=== PATIENT | female | born 1950 | race Caucasian/White ===

== ENCOUNTER 2019-01-03 13:48 | Inpatient (IN) | payer MEDICARE, OTHER ==
--- NOTE | 2019-01-03 14:57 | XRAY Report ---
Reason: cough, fever Procedure Date: 01/03/2019 Accession Number: [id number] / [id number] Procedure: XR - Chest 2 View X-Ray CPT Code: 75273 FULL RESULT: EXAM: CHEST RADIOGRAPHY EXAM DATE: 01/03/2019 02:39 PM. CLINICAL HISTORY: Cough, fever. COMPARISON: None. TECHNIQUE: 2 views. FINDINGS: Lungs/Pleura: No definite focal abnormality allowing for hypoventilation and body habitus. Mediastinum: Heart and mediastinal contours are unremarkable. Other: None. IMPRESSION: No definite abnormality allowing for hypoventilation and body habitus. RADIA
[2019-01-03 15:02] LABS: BASOPHILS # (AUTO) 0.1 10^3/uL (0.0-0.1); BASOPHILS % (AUTO) 0.3 %; EOSINOPHILS # (AUTO) 0.1 10^3/uL (0.0-0.7); EOSINOPHILS % (AUTO) 0.3 %; HGB - HEMOGLOBIN 14.5 g/dL (12.0-16.0); LYMPHOCYTES # (AUTO) 0.6 10^3/uL (1.5-3.5); LYMPHOCYTES % (AUTO) 3.3 %; MEAN CORPUSCULAR HEMOGLOBIN 29.4 pg (27.0-31.0); MEAN CORPUSCULAR HGB CONC 33.5 g/dL (32.0-36.0); MEAN CORPUSCULAR VOLUME 87.7 fL (81.0-99.0); MEAN PLATELET VOLUME 9.3 fL (7.9-10.8); MONOCYTES # (AUTO) 1.4 10^3/uL (0.0-1.0); MONOCYTES % (AUTO) 7.4 %; NEUTROPHILS # (AUTO) 16.2 10^3/uL (1.5-6.6); NEUTROPHILS % (AUTO) 88.1 %; PLT - PLATELET COUNT 182 10^3/uL (130-450); RED BLOOD COUNT 4.94 10^6/uL (4.20-5.40); RED CELL DISTRIBUTION WIDTH 15.9 % (12.0-15.0); WHITE BLOOD COUNT 18.5 x10^3/uL (4.8-10.8)
[2019-01-03 15:11] LABS: ALBUMIN 3.5 g/dL (3.2-5.5); ALBUMIN/GLOBULIN RATIO 0.8 (1.0-2.2); BILIRUBIN,TOTAL 0.5 mg/dL (0.2-1.0); CALCIUM 9.8 mg/dL (8.5-10.3); CREATININE 1.1 mg/dL (0.4-1.0)
--- NOTE | 2019-01-03 15:27 | ED Physician Documentation ---
PD HPI DYSPNEA - Stated complaint Stated Complaint: SOA/FEVER - Chief complaint Chief Complaint: Fever - History obtained from History obtained from: Patient - History of Present Illness Timing - onset: How many days ago (2) Timing - details: Still present Worsened by: Coughing Associated symptoms: Fever, Cough Similar symptoms before: Has not had sx before - Additional information Additional information: The patient is a 68-year-old female who presents with fever, chills, and nonproductive cough that started 2 days ago and have been getting worse since that time. She also reports generalized headache. She denies sore throat, abdominal pain, chest pain, nausea or vomiting. She denies history of similar symptoms in the past. 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 Review of Systems Constitutional: reports: Fever, Chills Nose: denies: Congestion Throat: denies: Sore throat Cardiac: denies: Chest pain / pressure Respiratory: reports: Dyspnea, Cough GI: denies: Abdominal Pain, Nausea, Vomiting : denies: Dysuria Skin: denies: Rash Musculoskeletal: reports: Extremity swelling (Chronically). denies: Extremity pain Neurologic: reports: Headache. 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 : None HEENT: Chronic vision loss Psych: None Musculoskeletal: None Derm: None Other Past Medical History: H/O MRSA - Past Surgical History Past Surgical History: Yes Ortho: Knee replacement Derm: Other - Allergies Allergies/Adverse Reactions: Allergies Allergy/AdvReac Type Severity Reaction Status Date / Time Sulfa (Sulfonamide Allergy Cramps Verified 01/03/19 14:19 Antibiotics) - Living Situation Living Situation: reports: Alone - Social History Does the pt smoke?: No Smoking Status: Former smoker Does the pt drink ETOH?: Yes ETOH Use: Wine Does the pt have substance abuse?: No - Immunizations Immunizations are current?: Yes Immunizations: TDAP current <10years, Other immun current - POLST Patient has POLST: No PD ED PE NORMAL - Vitals Vital signs reviewed: Yes (low pulse oximetry and tachycardic) - General General: Alert and oriented X 3, Other (Morbidly obese) - HEENT HEENT: Atraumatic, EOMI, Ears normal, Pharynx benign - Neck Neck: Supple, no meningeal sign, No adenopathy, No JVD - Cardiac Cardiac: Other (Tachycardic) - Respiratory Respiratory: Clear bilaterally - Abdomen Abdomen: Soft, Non tender - Back Back: No CVA TTP - Derm Derm: No rash - Extremities Extremities: No calf tenderness / cord, Other (There is erythema and warmth to palpation of the lower extremities, particularly the left lower extremity at the lateral anterior lower leg. There is a well-healed fasciotomy scar on the medial aspect of the left leg.) - Neuro Neuro: Alert and oriented X 3, No motor deficit, Normal speech Results - Vitals Vitals: Vital Signs - 24 hr 01/03/19 01/03/19 01/03/19 14:14 14:25 15:07 Temperature 36.8 C 37.1 C Heart Rate 105 H 102 H Respiratory 18 20 Rate Blood Pressure 104/56 L 100/73 O2 Saturation 89 L 93 94 01/03/19 01/03/19 01/03/19 15:44 16:00 16:30 Temperature 37.8 C H 37.1 C Heart Rate 98 95 99 Respiratory 29 H 22 17 Rate Blood Pressure 104/52 L 136/55 H 136/55 H O2 Saturation 96 96 96 01/03/19 01/03/19 01/03/19 17:15 18:01 18:29 Temperature 37.5 C 37.2 C 37.5 C Heart Rate 96 101 H 96 Respiratory 20 18 28 H Rate Blood Pressure 111/63 111/71 138/72 H O2 Saturation 96 92 95 01/03/19 01/03/19 19:13 19:49 Temperature 37.4 C 37.0 C Heart Rate 107 H 105 H Respiratory 20 20 Rate Blood Pressure 137/90 H 121/85 H O2 Saturation 93 99 Oxygen O2 Source Nasal cannula Oxygen Flow Rate 3 - Labs Labs: Laboratory Tests 01/03/19 01/03/19 01/03/19 14:40 14:40 14:40 WBC 18.5 H RBC 4.94 Hgb 14.5 Hct 43.3 MCV 87.7 MCH 29.4 MCHC 33.5 RDW 15.9 H Plt Count 182 MPV 9.3 Neut # (Auto) 16.2 H Lymph # (Auto) 0.6 L [place] # (Auto) 1.4 H Eos # (Auto) 0.1 Baso # (Auto) 0.1 Absolute Nucleated RBC 0.00 Nucleated RBC % 0.0 D-Dimer Sodium 132 L Potassium 4.2 Chloride 96 L Carbon Dioxide 26 Anion Gap 10.0 BUN 25 H Creatinine 1.1 H Estimated GFR (MDRD) 49 L Glucose 101 H Lactic Acid 1.7 Calcium 9.8 Total Bilirubin 0.5 AST 25 ALT 22 Alkaline Phosphatase 70 B-Natriuretic Peptide Total Protein 8.0 Albumin 3.5 Globulin 4.5 H Albumin/Globulin Ratio 0.8 L Lipase 34 Urine Color Urine Clarity Urine pH Ur Specific [place] Urine Protein Urine Glucose (UA) Urine Ketones Urine Occult Blood Urine Nitrite Urine Bilirubin Urine Urobilinogen Ur Leukocyte Esterase Ur Microscopic Review Urine Culture Comments 01/03/19 01/03/19 01/03/19 14:40 14:40 19:30 WBC RBC Hgb Hct MCV MCH MCHC RDW Plt Count MPV Neut # (Auto) Lymph # (Auto) [place] # (Auto) Eos # (Auto) Baso # (Auto) Absolute Nucleated RBC Nucleated RBC % D-Dimer 381.8 H Sodium Potassium Chloride Carbon Dioxide Anion Gap BUN Creatinine Estimated GFR (MDRD) Glucose Lactic Acid Calcium Total Bilirubin AST ALT Alkaline Phosphatase B-Natriuretic Peptide 80 Total Protein Albumin Globulin Albumin/Globulin Ratio Lipase Urine Color YELLOW Urine Clarity CLEAR Urine pH 5.5 Ur Specific [place] <=1.005 Urine Protein NEGATIVE Urine Glucose (UA) NEGATIVE Urine Ketones NEGATIVE Urine Occult Blood NEGATIVE Urine Nitrite NEGATIVE Urine Bilirubin NEGATIVE Urine Urobilinogen 0.2 (NORMAL) Ur Leukocyte Esterase NEGATIVE Ur Microscopic Review NOT INDICATED Urine Culture Comments NOT INDICATED - Rads (name of study) CXR Radiology: Prelim report reviewed, EMP read contemporaneously, See rad report (No definite abnormality allowing for hypoventilation and body but this.) CT pulm angio Radiology: Prelim report reviewed, See rad report (1) Moderate motion artifact limited and segmental and subsegmental pulmonary emboli could be missed. No definite evidence for pulmonary emboli. 2) No definite acute prominent findings are seen. Motion artifact limited. 3) Fatty liver. 4) Small gallstones.) PD MEDICAL DECISION MAKING - ED course Complexity details: reviewed results, re-evaluated patient, considered differential, d/w patient, d/w family, d/w financial analysis consultant ED course: The patient's presentation is significant for cellulitis of the left lower extremity with possible sepsis. She is tachycardic and has low pulse oximetry of 89 to 90% on room air. Her white blood cell count is elevated at 18.5, with a lactate in the normal range at 1.7. Blood cultures x2 were drawn and are pending. Chest x-ray reveals no pulmonary infiltrate. Because of continued dyspnea, low pulse oximetry, and an elevated d-dimer, a CT pulmonary angiogram w as performed. It reveals no evidence of pulmonary embolus. Treatment in the emergency department included administration of normal saline 1L IV, ceftriaxone 1 g IV, Zithromax 500 mg orally (when it was initially thought that her infection was pulmonary in etiology), and subsequently vancomycin 1 g IV. I discussed her condition with Dr. Hinds, who accepts her for further evaluation and treatment. Departure - Departure Disposition: [facility] DC/Xfer Clinical Impression: Respiratory insufficiency Cellulitis Qualifiers: Site of cellulitis: extremity Site of cellulitis of extremity: lower extremity Laterality: left Qualified Code(s): L03.116 - Cellulitis of left lower limb Condition: Stable
[2019-01-03] MEDS ORDERED: cefTRIAXone 1 GM in SODIUM CHLORIDE 0.9% MINIBAG 100 ML IV STA (15:29)
[2019-01-03] MEDS ORDERED: AZITHROMYCIN 250 MG TABLET PO STA (15:29)
[2019-01-03] MEDS ORDERED: SODIUM CHLORIDE 0.9% 1,000 ML IV ONE (16:06)
[2019-01-03] MEDS ORDERED: IOVERSOL 320 100 ML VIAL IVP ONE ×2 (17:04→18:33)
--- NOTE | 2019-01-03 18:21 | CT Report ---
Reason: dyspnea with elevated d-dimer Procedure Date: 01/03/2019 Accession Number: [id number] / [id number] Procedure: CT - ANGIO CHEST W/WO CPT Code: FULL RESULT: EXAM: CT ANGIOGRAM CHEST EXAM DATE: 01/03/2019 05:50 PM. CLINICAL HISTORY: Dyspnea with elevated d-dimer. COMPARISON: CHEST 2 VIEW 01/03/2019 2:25 PM. TECHNIQUE: Routine helical imaging was performed through the chest in the pulmonary arterial phase. IV Contrast: OPTI 320 100ML. Reconstructions: Coronal 3-D MIP reconstructions.Sagittal and coronal. In accordance with CT protocol optimization, one or more of the following dose reduction techniques were utilized for this exam: automated exposure control, adjustment of mA and/or KV based on patient size, or use of iterative reconstructive technique. FINDINGS: Upper abdomen: Fatty liver. Small calcified gallstones. Elevated right hemidiaphragm. No thoracic aortic aneurysm or dissection. No mediastinal or hilar lymphadenopathy. Moderate motion artifact limited and segmental and subsegmental pulmonary emboli could be missed. No definite evidence for pulmonary emboli. Prominent heart size. Lungs: Motion artifact limits the exam. Mild bilateral dependent atelectasis. No consolidation, pleural effusion or pneumothorax. Bones: No acute bone findings. IMPRESSION: 1. Moderate motion artifact limited and segmental and subsegmental pulmonary emboli could be missed. No definite evidence for pulmonary emboli. 2. No definite acute prominent findings are seen. Motion artifact limited. 3. Fatty liver. 4. Small gallstones. RADIA
[2019-01-03] MEDS ORDERED: IBUPROFEN 800 MG TABLET PO STA (19:09)
[2019-01-03 19:43] LABS: BILIRUBIN,URINE NEGATIVE (NEGATIVE); GLUCOSE, URINE (UA) NEGATIVE (NEGATIVE); KETONES,URINE (UA) NEGATIVE (NEGATIVE); LEUKOCYTE ESTERASE, URINE NEGATIVE (NEGATIVE); NITRITE,URINE NEGATIVE (NEGATIVE); OCCULT BLOOD,URINE NEGATIVE (NEGATIVE); PH,URINE 5.5 PH (5.0-7.5); PROTEIN,URINE NEGATIVE (NEGATIVE); UROBILINOGEN,URINE 0.2 (NORMAL) E.U./dL (NORMAL)
[2019-01-03 19:45] LABS: CLARITY,URINE CLEAR (CLEAR)
[2019-01-03] MEDS ORDERED: VANCOMYCIN INJ 1 GM in SODIUM CHLORIDE 0.9% 250 ML IV STA ×2 (19:52→21:06)
[2019-01-03] MEDS ORDERED: ACETAMINOPHEN 325 MG TABLET PO PRN (19:56)
[2019-01-03] MEDS ORDERED: ONDANSETRON 4 MG/2 ML VIAL IVP PRN (19:56)
[2019-01-03] MEDS ORDERED: VANCOMYCIN INJ 1 GM in SODIUM CHLORIDE 0.9% 250 ML IV SCH (20:00)
[2019-01-03] MEDS: SODIUM CHLORIDE 0.9% 1,000 ML IV SCH (20:14)
--- NOTE | 2019-01-03 20:20 | HISTORY & PHYSICAL EXAMINATION ---
Chief Complaint - Chief Complaint Chief Complaint: left lower extremity redness History of Present Illness - Admitted From Admitted From:: [facility] - History Obtained From Records Reviewed: yes History obtained from: patient - History of Present Illness HPI Comment/Other: Patient seen on 01/03/19 around 22:30pm Patient is a 68 y/o female who presented to the ED with chills and tachycardia. Onset of her symptoms was 2 days ago, She powered through them on Thursday which was the following day but then got significantly worse in the evening. Normally she is tachycardic with exertion. However she noticed through her fitbit that her heart rate was even higher at 170. She also had a temp of 102F at home. She has chronic lower extremity edema with venostasis. She had a left knee replacement some years back which had subsequent complications warranting a fasciatomy. Her left lower extremity distal to the knee is slightly erythematous and juan c hes with palpation. It is warmer to touch than the right. She denies any pain. In the ED she had a WBC of 18 a Temp of 38.1 Celsius and she was mildly hypoxic with exertion. She does not use oxygen at home. She gets around using a walker and a cane. She also drives. She denied chest pain, dyspnea, abd pain, nausea, vomiting or diarrhea. As a result of her presentation, she is being admitted for further treatment. 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 : reports: None HEENT: reports: Chronic vision loss Psych: reports: None Musculoskeletal: reports: None Derm: reports: None MRSA Hx?: Yes Other Past Medical History: H/O MRSA - Past Surgical History Ortho: reports: Knee replacement Derm: reports: Other - Family & Social History Family History: Mother: , CVA/TIA Living arrangement: At home Living Situation: Alone Social History Notes: She denies tobacco, alcohol or illicit drug use - POLST Patient has POLST: No POLST Status: Full Code Meds/Allgy - Allergies Allergies/Adverse Reactions: Allergies Allergy/AdvReac Type Severity Reaction Status Date / Time Sulfa (Sulfonamide Allergy Cramps Verified 01/03/19 14:19 Antibiotics) Review of Systems - Constitutional Constitutional: reports: Fever, Chills, Other (obese) - Eyes Eyes: denies: Dipolpia - Ears, Nose & Throat Ears, Nose & Throat: denies: Nasal pain, Sore throat, Hoarseness - Cardiovascular Cariovascular: reports: Palpitations, Exertional dyspnea. denies: Chest pain, Edema, Lightheadedness, Syncope - Respiratory Respiratory: reports: SOB at rest, SOB with exertion. denies: Cough, Sputum production, Wheezing - Gastrointestinal Gastrointestinal: reports: Reflux/heartburn. denies: Abdominal pain, Abdominal distention, Constipation, Diarrhea, Nausea, Vomiting - Genitourinary Genitourinary: denies: Dysuria, Frequency, Urgency, Hematuria - Musculoskeletal Musculoskeletal: denies: Muscle pain, Back pain - Integumentary Integumentary: reports: Other (redness in left lower extremity). denies: Pruritis, Lesions - Neurological Neurological: denies: General weakness, Focal weakness, Headache, Dizziness - Psychiatric Psychiatric: denies: Depression, Anxiety - Endocrine Endocrine: denies: Polyuria, Polydypsia - Hematologic/Lymphatic Hematologic/Lymphatic: denies: Anemia, Bruising, Petechiae Prior Level of Functionality: She is independent of activities of daily living Exam - Vital Signs Vital Signs: Vital Signs x48h Temp Pulse Resp BP Pulse Ox 01/03/19 19:49 37.0 C 105 H 20 121/85 H 99 01/03/19 19:13 37.4 C 107 H 20 137/90 H 93 01/03/19 18:29 37.5 C 96 28 H 138/72 H 95 01/03/19 18:01 37.2 C 101 H 18 111/71 92 01/03/19 17:15 37.5 C 96 20 111/63 96 01/03/19 16:30 37.1 C 99 17 136/55 H 96 01/03/19 16:00 95 22 136/55 H 96 01/03/19 15:44 37.8 C H 98 29 H 104/52 L 96 01/03/19 15:07 37.1 C 102 H 20 100/73 94 01/03/19 14:25 93 01/03/19 14:14 36.8 C 105 H 18 104/56 L 89 L - Physical Exam General Appearance: positive: Alert, Mild distress, Other (Moebidly obese). negative: Lethargic Eyes Bilateral: positive: Normal inspection, PERRL, EOMI ENT: positive: ENT inspection nml, No signs of dehydration Neck: positive: Nml inspection, No JVD, Trachea midline Respiratory: positive: Chest non-tender, Breath sounds nml. negative: Wheezes, Rales, Rhonchi Cardiovascular: positive: Tachycardia Abdomen: positive: Non-tender, No organomegaly, Nml bowel sounds, No distention, Other (morbidly obese abdomen). negative: Guarding, Rebound Back: positive: Nml inspection Skin: positive: Warm, Other (left lower extremity redness) Neurologic/Psychiatric: positive: Oriented x3, CN's nml (2-12), Motor nml, Sensation nml, Mood/affect nml Conclusion/Plan - Problem List (1) Cellulitis Conclusion/Plan: Patient given rocephin, azithromycin and vancomycin in the ED. Will continue vancomycin with pharmacy to dose. Gentle IV hydration with normal saline at 100ml/hr Blood cultures pending Tylenol for fever. Qualifiers: Site of cellulitis: extremity Site of cellulitis of extremity: lower extremity Laterality: left Qualified Code(s): L03.116 - Cellulitis of left lower limb (2) Hypertension Conclusion/Plan: On metoprolol and micardis Also takes spironolactone and lasix for edema Will hold micardis, spironolactone and lasix while gently hydrating patient (3) Lower extremity edema Conclusion/Plan: On lasix and spironolactone Will hold micardis, spironolactone and lasix while gently hydrating patient (4) Hyperlipidemia Conclusion/Plan: On simvastatin (5) GERD (gastroesophageal reflux disease) Conclusion/Plan: Protonix ordered - Lab Results Fish Bones: 01/03/19 14:40 01/03/19 14:40 Core Measures - Anticipated LOS I expect patient to be DC'd or transferred within 96 hours.: Yes - DVT/VTE - Prophylaxis VTE/DVT Device ordered at admit?: Yes VTE/DVT Prophylaxis med ordered at admit?: Yes - Stroke - Rehab Assessment Rehab services assessment to be ordered?: Yes
[2019-01-03] MEDS ORDERED: VANCOMYCIN PER PHARMACY 100 GM in SODIUM CHLORIDE 0.9% 250 ML IV SCH (21:00)
[2019-01-03] MEDS: SODIUM CHLORIDE FLUSH 0.9% 10 ML SYRINGE IVP PRN (22:20)
[2019-01-04] MEDS: SODIUM CHLORIDE FLUSH 0.9% 10 ML SYRINGE IVP SCH ×3 (00:49→18:35)
[2019-01-04] MEDS: NYSTATIN POWDER 15 GM TOP SCH ×3 (03:30→21:22)
[2019-01-04 05:47] LABS: BASOPHILS % (AUTO) 0.3 %; EOSINOPHILS # (AUTO) 0.1 10^3/uL (0.0-0.7); HGB - HEMOGLOBIN 12.8 g/dL (12.0-16.0); LYMPHOCYTES # (AUTO) 0.7 10^3/uL (1.5-3.5); LYMPHOCYTES % (AUTO) 5.4 %; MEAN CORPUSCULAR HEMOGLOBIN 28.1 pg (27.0-31.0); MEAN CORPUSCULAR HGB CONC 31.4 g/dL (32.0-36.0); MEAN CORPUSCULAR VOLUME 89.5 fL (81.0-99.0); MEAN PLATELET VOLUME 9.4 fL (7.9-10.8); MONOCYTES % (AUTO) 7.4 %; NEUTROPHILS # (AUTO) 11.3 10^3/uL (1.5-6.6); NEUTROPHILS % (AUTO) 85.4 %; PLT - PLATELET COUNT 159 10^3/uL (130-450); RED BLOOD COUNT 4.56 10^6/uL (4.20-5.40); RED CELL DISTRIBUTION WIDTH 16.3 % (12.0-15.0); WHITE BLOOD COUNT 13.2 x10^3/uL (4.8-10.8)
[2019-01-04 06:00] LABS: CALCIUM 9.2 mg/dL (8.5-10.3)
[2019-01-04] MEDS: PANTOPRAZOLE 40 MG VIAL IVP SCH (06:24)
[2019-01-04] MEDS ORDERED: VANCOMYCIN PER PHARMACY 100 GM in SODIUM CHLORIDE 0.9% 250 ML IV PRN (08:55)
[2019-01-04] MEDS ORDERED: ENOXAPARIN 40 MG/0.4 ML SYRINGE SUBQ SCH (09:00)
[2019-01-04] MEDS ORDERED: VANCOMYCIN INJ 2 GM in SODIUM CHLORIDE 0.9% 500 ML IV SCH (09:00)
[2019-01-04] MEDS: SODIUM CHLORIDE 0.9% 1,000 ML IV SCH ×2 (09:49→23:55)
[2019-01-04] MEDS: POLYETHYLENE GLYCOL 3350 17 GM PACKET PO SCH ×2 (09:49→09:54)
[2019-01-04] MEDS: VANCOMYCIN INJ 2 GM in SODIUM CHLORIDE 0.9% 500 ML IV SCH ×2 (09:58→21:28)
--- NOTE | 2019-01-04 10:26 | PROVIDER PROGRESS NOTE ---
Subjective - Prog Note Date Prog Note Date: 01/04/19 Prog Note Time: 14:14 - Subjective Pt reports feeling: Improved Subjective: States her legs do not hurt as much. She does not have the overwhelming feeling of Reiger's and hurting all over. She is tired but improved from yesterday. From what she can see of her legs, and it is difficult to see because of her belly in the way, the right leg looks completely normal. The left leg has a pink eschar from fasciotomies and she says that is normal. She and I both can see cellulitis that shrank below the painted line on her anterior left reyes. Her goal is to go home. She denies chest pain, palpitations, shortness of breath. Her primary care provider is in [place] and will follow up with her when she leaves this. Current Medications - Current Medications Current Medications: Active Medications Acetaminophen (Tylenol) 650 mg PO Q4HR PRN PRN Reason: Pain 1 to 4 Last Admin: 01/04/19 06:25 Dose: 650 mg Enoxaparin Sodium (Lovenox) 40 mg SUBQ DAILY [facility] Last Admin: 01/04/19 09:49 Dose: 40 mg Sodium Chloride (Normal Saline 0.9%) 1,000 mls @ 100 mls/hr IV .Q10H [facility] Last Admin: 01/04/19 09:49 Dose: 100 mls/hr Vancomycin HCl 100 gm/ Sodium (Chloride) 250 mls @ 167 mls/hr IV PRN PRN PRN Reason: VANCO PER PHARMACY Vancomycin HCl 2 gm/ Sodium (Chloride) 500 mls @ 250 mls/hr IV Q12H [facility] Last Admin: 01/04/19 09:58 Dose: 250 mls/hr Nystatin (Nystop) 1 applic TOP BID [facility] Last Admin: 01/04/19 09:49 Dose: 1 applic Ondansetron HCl (Zofran Inj) 4 mg IVP Q6HR PRN PRN Reason: Nausea / Vomiting Pantoprazole Sodium (Protonix) 40 mg IVP QDAC [facility] Last Admin: 01/04/19 06:24 Dose: 40 mg Polyethylene Glycol (Miralax) 17 gm PO DAILY [facility] Last Admin: 01/04/19 09:54 Dose: Not Given Sodium Chloride (Normal Saline Flush 0.9%) 10 ml IVP PRN PRN PRN Reason: NEEDED PER PROVIDER ORDERS Last Admin: 01/03/19 22:20 Dose: 10 ml Sodium Chloride (Normal Saline Flush 0.9%) 10 ml IVP 0100,0900,1700 [facility] Last Admin: 01/04/19 08:11 Dose: Not Given Ascorbic Acid [Vitamin C] 500 mg PO 01/04/19 Aspirin [Adult Aspirin Regimen] 81 mg PO 01/04/19 Ca/D3/Mag/Zinc/Twin/Mau/Mgbor [Caltrate 600-D3-Min Chew Tab] 1 each PO 01/04/19 Cetirizine [ZyrTEC] 01/04/19 Cranberry Fruit Extract [Cranberry] 200 mg PO 01/04/19 Esomeprazole Magnesium [Nexium] 40 mg PO DAILY 01/04/19 Furosemide 20 mg PO DAILY 01/04/19 Furosemide 40 mg PO DAILY 01/04/19 Ibuprofen [Ibu] 800 mg PO BID 01/04/19 Magnesium 01/04/19 Metoprolol Tartrate 25 mg PO BID 01/04/19 Multivit with Calcium,Iron,Min [Multiple Vitamins For Women] 1 each PO 01/04/19 Simvastatin 40 mg PO DAILY 01/04/19 Spironolactone 100 mg PO DAILY 01/04/19 Telmisartan [Micardis] 40 mg PO DAILY 01/04/19 Objective - Vital Signs/Intake & Output Reviewed Vital Signs: Yes Vital Signs: Vital Signs x48h Temp Pulse Pulse Pulse Resp BP BP 01/04/19 09:50 89 18 124/61 01/04/19 08:22 37.1 C 97 15 01/04/19 05:56 38.1 C H 112 H 20 01/04/19 03:33 36.9 C 104 H 22 119/53 L BP Pulse Ox 01/04/19 09:50 95 01/04/19 08:22 92/36 L 94 01/04/19 05:56 96 01/04/19 03:33 93 Intake & Output: Intake & Output 01/01/19 01/02/19 01/03/19 01/04/19 23:59 23:59 23:59 23:59 Intake Total 8503.139 5892 Output Total 1000 200 Balance 444.496 1886 - Objective General Appearance: positive: No acute distress, Alert, Other (sitting upright in chair. Morbidly obese, pleasant femal who look stated age. Just finished w PT and her O2 sat dropped to 84% on RA but rebounded to nml once sitting. PUlse is a little high. She is on metoprolol at home and not resumed yet) Eyes Bilateral: positive: PERRL, EOMI ENT: positive: Pharynx nml Neck: negative: Stiff neck, Carotid bruit Respiratory: positive: Chest non-tender. negative: Wheezes, Rales, Rhonchi Cardiovascular: positive: Regular rate & rhythm, Tachycardia. negative: Systolic murmur, Gallop/S4, Friction rub Abdomen: positive: Nml bowel sounds. negative: Guarding, Rebound Extremities: positive: Other (very large legs with circumference. Has chronic venous rubor of right leg, densely purple skin color that goes from shins to sides of calf. No redness or heat. Rubor improves when legs up. Left leg has vertical knee scar, later leg scar from thigh to calf (fasciotomy) , the same rubor as right leg. But medially redness and heat that was demarcated by pen last night has resolved.) Neurologic/Psychiatric: positive: Oriented x3, CN's nml (2-12), Motor nml - Lab Results Fish Bones: 01/04/19 05:15 01/04/19 05:15 Other Labs: Lab Results x24hrs 01/04/19 01/04/19 01/03/19 Range/Units 05:15 05:15 21:40 WBC 13.2 H (4.8-10.8) x10^3/uL RBC 4.56 (4.20-5.40) 10^6/uL Hgb 12.8 (12.0-16.0) g/dL Hct 40.8 (37.0-47.0) % MCV 89.5 (81.0-99.0) fL MCH 28.1 (27.0-31.0) pg MCHC 31.4 L (32.0-36.0) g/dL RDW 16.3 H (12.0-15.0) % Plt Count 159 (130-450) 10^3/uL MPV 9.4 (7.9-10.8) fL Neut # (Auto) 11.3 H (1.5-6.6) 10^3/uL Lymph # (Auto) 0.7 L (1.5-3.5) 10^3/uL Butts # (Auto) 1.0 (0.0-1.0) 10^3/uL Eos # (Auto) 0.1 (0.0-0.7) 10^3/uL Baso # (Auto) 0.0 (0.0-0.1) 10^3/uL Absolute Nucleated RBC 0.00 x10^3/uL Nucleated RBC % 0.0 /100WBC D-Dimer (200.0-255.0) ng/mL Sodium 138 (135-145) mmol/L Potassium 3.9 (3.5-5.0) mmol/L Chloride 103 (101-111) mmol/L Carbon Dioxide 30 (21-32) mmol/L Anion Gap 5.0 L (6-13) BUN 20 (6-20) mg/dL Creatinine 1.0 (0.4-1.0) mg/dL Estimated GFR (MDRD) 55 L (>89) Glucose 91 (70-100) mg/dL Lactic Acid (0.5-2.2) mmol/L Calcium 9.2 (8.5-10.3) mg/dL Total Bilirubin (0.2-1.0) mg/dL AST (10-42) IU/L ALT (10-60) IU/L Alkaline Phosphatase (42-121) IU/L B-Natriuretic Peptide (5-100) pg/mL Total Protein (6.7-8.2) g/dL Albumin (3.2-5.5) g/dL Globulin (2.1-4.2) g/dL Albumin/Globulin Ratio (1.0-2.2) Lipase (22-51) U/L Urine Color Urine Clarity (CLEAR) Urine pH (5.0-7.5) PH Ur Specific [place] (1.002-1.030) Urine Protein (NEGATIVE) mg/dL Urine Glucose (UA) (NEGATIVE) mg/dL Urine Ketones (NEGATIVE) mg/dL Urine Occult Blood (NEGATIVE) Urine Nitrite (NEGATIVE) Urine Bilirubin (NEGATIVE) Urine Urobilinogen (NORMAL) E.U./dL Ur Leukocyte Esterase (NEGATIVE) Ur Microscopic Review Urine Culture Comments Nasal Screen MRSA (PCR) NEGATIVE (NEGATIVE) 01/03/19 01/03/19 01/03/19 Range/Units 19:30 14:40 14:40 WBC (4.8-10.8) x10^3/uL RBC (4.20-5.40) 10^6/uL Hgb (12.0-16.0) g/dL Hct (37.0-47.0) % MCV (81.0-99.0) fL MCH (27.0-31.0) pg MCHC (32.0-36.0) g/dL RDW (12.0-15.0) % Plt Count (130-450) 10^3/uL MPV (7.9-10.8) fL Neut # (Auto) (1.5-6.6) 10^3/uL Lymph # (Auto) (1.5-3.5) 10^3/uL Butts # (Auto) (0.0-1.0) 10^3/uL Eos # (Auto) (0.0-0.7) 10^3/uL Baso # (Auto) (0.0-0.1) 10^3/uL Absolute Nucleated RBC x10^3/uL Nucleated RBC % /100WBC D-Dimer 381.8 H (200.0-255.0) ng/mL Sodium (135-145) mmol/L Potassium (3.5-5.0) mmol/L Chloride (101-111) mmol/L Carbon Dioxide (21-32) mmol/L Anion Gap (6-13) BUN (6-20) mg/dL Creatinine (0.4-1.0) mg/dL Estimated GFR (MDRD) (>89) Glucose (70-100) mg/dL Lactic Acid (0.5-2.2) mmol/L Calcium (8.5-10.3) mg/dL Total Bilirubin (0.2-1.0) mg/dL AST (10-42) IU/L ALT (10-60) IU/L Alkaline Phosphatase (42-121) IU/L B-Natriuretic Peptide 80 (5-100) pg/mL Total Protein (6.7-8.2) g/dL Albumin (3.2-5.5) g/dL Globulin (2.1-4.2) g/dL Albumin/Globulin Ratio (1.0-2.2) Lipase (22-51) U/L Urine Color YELLOW Urine Clarity CLEAR (CLEAR) Urine pH 5.5 (5.0-7.5) PH Ur Specific [place] <=1.005 (1.002-1.030) Urine Protein NEGATIVE (NEGATIVE) mg/dL Urine Glucose (UA) NEGATIVE (NEGATIVE) mg/dL Urine Ketones NEGATIVE (NEGATIVE) mg/dL Urine Occult Blood NEGATIVE (NEGATIVE) Urine Nitrite NEGATIVE (NEGATIVE) Urine Bilirubin NEGATIVE (NEGATIVE) Urine Urobilinogen 0.2 (NORMAL) (NORMAL) E.U./dL Ur Leukocyte Esterase NEGATIVE (NEGATIVE) Ur Microscopic Review NOT INDICATED Urine Culture Comments NOT INDICATED Nasal Screen MRSA (PCR) (NEGATIVE) 01/03/19 01/03/19 01/03/19 Range/Units 14:40 14:40 14:40 WBC 18.5 H (4.8-10.8) x10^3/uL RBC 4.94 (4.20-5.40) 10^6/uL Hgb 14.5 (12.0-16.0) g/dL Hct 43.3 (37.0-47.0) % MCV 87.7 (81.0-99.0) fL MCH 29.4 (27.0-31.0) pg MCHC 33.5 (32.0-36.0) g/dL RDW 15.9 H (12.0-15.0) % Plt Count 182 (130-450) 10^3/uL MPV 9.3 (7.9-10.8) fL Neut # (Auto) 16.2 H (1.5-6.6) 10^3/uL Lymph # (Auto) 0.6 L (1.5-3.5) 10^3/uL Butts # (Auto) 1.4 H (0.0-1.0) 10^3/uL Eos # (Auto) 0.1 (0.0-0.7) 10^3/uL Baso # (Auto) 0.1 (0.0-0.1) 10^3/uL Absolute Nucleated RBC 0.00 x10^3/uL Nucleated RBC % 0.0 /100WBC D-Dimer (200.0-255.0) ng/mL Sodium 132 L (135-145) mmol/L Potassium 4.2 (3.5-5.0) mmol/L Chloride 96 L (101-111) mmol/L Carbon Dioxide 26 (21-32) mmol/L Anion Gap 10.0 (6-13) BUN 25 H (6-20) mg/dL Creatinine 1.1 H (0.4-1.0) mg/dL Estimated GFR (MDRD) 49 L (>89) Glucose 101 H (70-100) mg/dL Lactic Acid 1.7 (0.5-2.2) mmol/L Calcium 9.8 (8.5-10.3) mg/dL Total Bilirubin 0.5 (0.2-1.0) mg/dL AST 25 (10-42) IU/L ALT 22 (10-60) IU/L Alkaline Phosphatase 70 (42-121) IU/L B-Natriuretic Peptide (5-100) pg/mL Total Protein 8.0 (6.7-8.2) g/dL Albumin 3.5 (3.2-5.5) g/dL Globulin 4.5 H (2.1-4.2) g/dL Albumin/Globulin Ratio 0.8 L (1.0-2.2) Lipase 34 (22-51) U/L Urine Color Urine Clarity (CLEAR) Urine pH (5.0-7.5) PH Ur Specific [place] (1.002-1.030) Urine Protein (NEGATIVE) mg/dL Urine Glucose (UA) (NEGATIVE) mg/dL Urine Ketones (NEGATIVE) mg/dL Urine Occult Blood (NEGATIVE) Urine Nitrite (NEGATIVE) Urine Bilirubin (NEGATIVE) Urine Urobilinogen (NORMAL) E.U./dL Ur Leukocyte Esterase (NEGATIVE) Ur Microscopic Review Urine Culture Comments Nasal Screen MRSA (PCR) (NEGATIVE) ABX Reporting Has patient been on IV antibiotics over the past 48 hours?: Yes Assessment/Plan - Problem List (1) Cellulitis Impression: Patient given rocephin, azithromycin and vancomycin in the ED. Day #2 Will continue vancomycin with pharmacy to dose. Day #2 In spite of her feeling better, still with fever to 38 this am. Gentle IV hydration with normal saline at 100ml/hr Blood cultures done and still pending Tylenol for fever. Because of pain and swelling, venous doppler ordered and CTA of chest neg for PE. Qualifiers: Site of cellulitis: extremity Site of cellulitis of extremity: lower extremity Laterality: left Qualified Code(s): L03.116 - Cellulitis of left lower limb (2) Hypertension Conclusion/Plan: BP is 92 to 124 systolic this am. On metoprolol and micardis at home. Also takes spironolactone and lasix for edema Continue to hold micardis, spironolactone and lasix while gently hydrating patient rsume low dose of metoprolol to avoid rebound tachycardia. (3) Lower extremity edema Conclusion/Plan: On lasix and spironolactone Will hold micardis, spironolactone and lasix while gently hydrating patient checking venous doppler left leg. (4) Hyperlipidemia Conclusion/Plan: On simvastatin (5) GERD (gastroesophageal reflux disease) Conclusion/Plan: Protonix ordered (6) [place], mild Her creatinine was 1.1 on admit and is 1.0 today. Continue to monitor. (7) DVT prophylaxis. Change lovenox to 30 mg bid per pharmacy recommendations which was then changed to 40 mg bid, again, their recommendation. Qualifiers: Qualified Code(s): L03.116 - Cellulitis of left lower limb
[2019-01-04] MEDS ORDERED: ACETAMINOPHEN 325 MG TABLET PO PRN (20:22)
[2019-01-04] MEDS: ENOXAPARIN 40 MG/0.4 ML SYRINGE SUBQ SCH (20:31)
[2019-01-04] MEDS: METOPROLOL TARTRATE 25 MG TABLET PO SCH (20:32)
--- NOTE | 2019-01-04 21:04 | Ultrasound Report ---
Reason: left lower extremity pain and swellng Procedure Date: 01/04/2019 Accession Number: [id number] / [id number] Procedure: US - Duplex Ext Veins Left CPT Code: FULL RESULT: EXAM: LEFT LOWER EXTREMITY VENOUS ULTRASOUND EXAM DATE: 01/04/2019 06:59 PM. CLINICAL HISTORY: Left lower extremity pain and swelling. History of left popliteal artery graft and left leg fasciotomy. COMPARISON: None. TECHNIQUE: Real-time sonographic vascular imaging was performed by the assistant grocery through the lower extremity utilizing both color-flow and Doppler spectral analysis. Multiple auto service representative static images were saved for review. FINDINGS: Sonographic assessment is limited due to body habitus. Common Femoral Vein (CFV): Normal. CFV-GSV Junction: Normal. Profunda Femoral Vein (PFV): Normal. Femoral Vein (FV) Prox: Normal. Femoral Vein (FV) Mid: Limited visualization with flow noted. Femoral Vein (FV) Dist: Limited visualization with flow noted. Popliteal Vein: Limited visualization with flow noted. Posterior Tibial Veins: Poorly visualized. Peroneal Veins: Poorly visualized. Other: Left inguinal lymph node present. Subcutaneous edema. IMPRESSION: 1. No evidence of left lower extremity deep venous thrombosis in the left common femoral, profunda femoris and proximal superficial femoral veins. Remainder of the left lower extremity veins are suboptimally visualized. [facility]
[2019-01-05] MEDS: SODIUM CHLORIDE FLUSH 0.9% 10 ML SYRINGE IVP SCH ×3 (03:01→16:52)
[2019-01-05 05:37] LABS: BASOPHILS % (AUTO) 0.4 %; EOSINOPHILS # (AUTO) 0.2 10^3/uL (0.0-0.7); EOSINOPHILS % (AUTO) 2.3 %; HGB - HEMOGLOBIN 12.3 g/dL (12.0-16.0); LYMPHOCYTES # (AUTO) 1.2 10^3/uL (1.5-3.5); LYMPHOCYTES % (AUTO) 17.7 %; MEAN CORPUSCULAR HEMOGLOBIN 28.9 pg (27.0-31.0); MEAN CORPUSCULAR HGB CONC 31.9 g/dL (32.0-36.0); MEAN CORPUSCULAR VOLUME 90.6 fL (81.0-99.0); MEAN PLATELET VOLUME 9.2 fL (7.9-10.8); MONOCYTES # (AUTO) 1.1 10^3/uL (0.0-1.0); NEUTROPHILS # (AUTO) 4.5 10^3/uL (1.5-6.6); NEUTROPHILS % (AUTO) 64.5 %; PLT - PLATELET COUNT 147 10^3/uL (130-450); RED BLOOD COUNT 4.25 10^6/uL (4.20-5.40); RED CELL DISTRIBUTION WIDTH 16.3 % (12.0-15.0)
[2019-01-05 05:48] LABS: CALCIUM 8.8 mg/dL (8.5-10.3); CREATININE 0.9 mg/dL (0.4-1.0)
[2019-01-05] MEDS: PANTOPRAZOLE 40 MG VIAL IVP SCH (06:56)
[2019-01-05] MEDS: SODIUM CHLORIDE FLUSH 0.9% 10 ML SYRINGE IVP PRN ×2 (06:59→14:47)
[2019-01-05] MEDS ORDERED: ALBUTEROL NEB 2.5 MG/3 ML INH PRN (07:07)
[2019-01-05] MEDS: ENOXAPARIN 40 MG/0.4 ML SYRINGE SUBQ SCH ×2 (08:25→20:33)
[2019-01-05] MEDS: METOPROLOL TARTRATE 25 MG TABLET PO SCH ×2 (08:25→20:37)
[2019-01-05] MEDS: POLYETHYLENE GLYCOL 3350 17 GM PACKET PO SCH ×2 (08:26→08:44)
[2019-01-05] MEDS: NYSTATIN POWDER 15 GM TOP SCH ×2 (08:26→20:33)
[2019-01-05] MEDS: DOCUSATE SODIUM 250 MG CAPSULE PO SCH (08:36)
[2019-01-05] MEDS: SENNA 8.6 MG TABLET PO SCH (08:36)
[2019-01-05 09:36] LABS: VANCOMYCIN,TROUGH 24.6 ug/mL (10.0-20.0)
[2019-01-05] MEDS: VANCOMYCIN INJ 2 GM in SODIUM CHLORIDE 0.9% 500 ML IV SCH ×2 (09:56→11:40)
[2019-01-05] MEDS: SODIUM CHLORIDE 0.9% 1,000 ML IV SCH (11:31)
[2019-01-05] MEDS ORDERED: VANCOMYCIN INJ 2 GM in SODIUM CHLORIDE 0.9% 500 ML IV SCH (12:00)
--- NOTE | 2019-01-05 12:26 | PROVIDER PROGRESS NOTE ---
Subjective - Prog Note Date Prog Note Date: 01/05/19 Prog Note Time: 12:32 - Subjective Subjective: she was feeling better yesterday and this am fever, sweats, fatigue. But got out of bed to chair, is ambulating in room. No cp, so cough. Left leg over the uppr medial calf, stings. Current Medications - Current Medications Current Medications: Active Medications Acetaminophen (Tylenol) 650 mg PO Q4HR PRN PRN Reason: Fever >101 Last Admin: 01/04/19 20:31 Dose: 650 mg Albuterol () 2.5 mg INH RTQ4H PRN PRN Reason: Wheezing Docusate Sodium (Colace 250mg Capsule) 250 - 500 mg PO DAILY [facility] Last Admin: 01/05/19 08:36 Dose: Not Given Enoxaparin Sodium (Lovenox) 40 mg SUBQ BID [facility] Last Admin: 01/05/19 08:25 Dose: 40 mg Vancomycin HCl 1.5 gm/ Sodium (Chloride) 500 mls @ 250 mls/hr IV Q12H [facility] Metoprolol Tartrate (Lopressor) 12.5 mg PO BID [facility] Last Admin: 01/05/19 08:25 Dose: 12.5 mg Nystatin (Nystop) 1 applic TOP BID [facility] Last Admin: 01/05/19 08:26 Dose: 1 applic Ondansetron HCl (Zofran Inj) 4 mg IVP Q6HR PRN PRN Reason: Nausea / Vomiting Pantoprazole Sodium (Protonix) 40 mg IVP QDAC [facility] Last Admin: 01/05/19 06:56 Dose: 40 mg Polyethylene Glycol (Miralax) 17 gm PO DAILY [facility] Last Admin: 01/05/19 08:44 Dose: Not Given Senna (Senokot) 8.6 - 17.2 mg PO DAILY [facility] Last Admin: 01/05/19 08:36 Dose: Not Given Sodium Chloride (Normal Saline Flush 0.9%) 10 ml IVP PRN PRN PRN Reason: NEEDED PER PROVIDER ORDERS Last Admin: 01/05/19 06:59 Dose: 10 ml Sodium Chloride (Normal Saline Flush 0.9%) 10 ml IVP 0100,0900,1700 [facility] Last Admin: 01/05/19 08:36 Dose: Not Given Ascorbic Acid [Vitamin C] 500 mg PO QPM 01/04/19 Aspirin [Adult Aspirin Regimen] 81 mg PO BID 01/04/19 Ca/D3/Mag/Zinc/Twin/Mau/Mgbor [Caltrate 600-D3-Min Chew Tab] 1 each PO DAILY 01/04/19 Cetirizine [ZyrTEC] 10 mg PO DAILY 01/04/19 Cranberry Fruit Extract [Cranberry] 1 cap PO DAILY 01/04/19 Esomeprazole Magnesium [Nexium] 40 mg PO QDAC 01/04/19 Furosemide 20 mg PO DAILY 01/04/19 Furosemide 40 mg PO DAILY 01/04/19 Ibuprofen [Ibu] 800 mg PO BID 01/04/19 Magnesium 250 mg PO DAILY 01/04/19 Metoprolol Tartrate 25 mg PO BID 01/04/19 Multivit with Calcium,Iron,Min [Multiple Vitamins For Women] 1 each PO DAILY 01/04/19 Simvastatin 40 mg PO QPM 01/04/19 Spironolactone 100 mg PO QPM 01/04/19 Telmisartan [Micardis] 40 mg PO DAILY 01/04/19 Objective - Vital Signs/Intake & Output Reviewed Vital Signs: Yes Vital Signs: Vital Signs x48h Temp Pulse Pulse Resp BP BP Pulse Ox 01/05/19 09:30 83 14 01/05/19 08:32 36.9 C 83 14 112/68 94 01/05/19 08:25 112/68 Intake & Output: Intake & Output 01/02/19 01/03/19 01/04/19 01/05/19 23:59 23:59 23:59 23:59 Intake Total 8461.871 3720.333 1220 Output Total 1000 900 Balance 122.545 1271.333 1220 - Objective General Appearance: positive: No acute distress, Alert, Other (sitting in chair with daughter at her side.) Eyes Bilateral: positive: PERRL, EOMI ENT: positive: Pharynx nml Neck: positive: No JVD. negative: Stiff neck, Carotid bruit Respiratory: positive: Chest non-tender, Wheezes (this am.). negative: Rales, Rhonchi Cardiovascular: positive: Regular rate & rhythm. negative: Systolic murmur, Gallop/S4, Friction rub Abdomen: positive: Non-tender, Nml bowel sounds Skin: positive: Other (izaiah under breast and abd panus, some changes in crack of buttocks) Extremities: positive: Full ROM, Pedal edema, Other (no change from yesterday's exam,) Neurologic/Psychiatric: positive: Oriented x3, CN's nml (2-12), Motor nml - Lab Results Fish Bones: 01/05/19 05:25 01/05/19 05:25 Other Labs: Lab Results x24hrs 01/05/19 01/05/19 01/05/19 Range/Units 09:23 05:25 05:25 WBC 7.0 (4.8-10.8) x10^3/uL RBC 4.25 (4.20-5.40) 10^6/uL Hgb 12.3 (12.0-16.0) g/dL Hct 38.5 (37.0-47.0) % MCV 90.6 (81.0-99.0) fL MCH 28.9 (27.0-31.0) pg MCHC 31.9 L (32.0-36.0) g/dL RDW 16.3 H (12.0-15.0) % Plt Count 147 (130-450) 10^3/uL MPV 9.2 (7.9-10.8) fL Neut # (Auto) 4.5 (1.5-6.6) 10^3/uL Lymph # (Auto) 1.2 L (1.5-3.5) 10^3/uL [place] # (Auto) 1.1 H (0.0-1.0) 10^3/uL Eos # (Auto) 0.2 (0.0-0.7) 10^3/uL Baso # (Auto) 0.0 (0.0-0.1) 10^3/uL Absolute Nucleated RBC 0.00 x10^3/uL Nucleated RBC % 0.0 /100WBC Sodium 135 (135-145) mmol/L Potassium 4.2 (3.5-5.0) mmol/L Chloride 101 (101-111) mmol/L Carbon Dioxide 26 (21-32) mmol/L Anion Gap 8.0 (6-13) BUN 16 (6-20) mg/dL Creatinine 0.9 (0.4-1.0) mg/dL Estimated GFR (MDRD) 62 L (>89) Glucose 97 (70-100) mg/dL Calcium 8.8 (8.5-10.3) mg/dL Last Dose Date UNK Last Dose Time UNK Vancomycin Trough 24.6 H (10.0-20.0) ug/mL ABX Reporting Has patient been on IV antibiotics over the past 48 hours?: Yes Assessment/Plan - Problem List (1) Cellulitis Impression: Patient given rocephin, azithromycin and vancomycin in the ED. Day #3 Will continue vancomycin with pharmacy to dose. She is toxic level on her Vanc today. Day #3 In spite of her feeling better, still with fever to 38 yesterday and today in the morning. Exam not much worse. No change in abx for now. Gentle IV hydration with normal saline at 100ml/hr Blood cultures are negative at 24 hours. Tylenol for fever. Because of pain and swelling, venous doppler ordered and was negative and CTA of chest neg for PE. Since azithromycin really adding skin coverage beyond the rocephin and vanc, will stop it. Qualifiers: Site of cellulitis: extremity Site of cellulitis of extremity: lower extremity Laterality: left Qualified Code(s): L03.116 - Cellulitis of left lower limb (2) Hypertension Conclusion/Plan: BP is 112 to 141 systolic since yesterday. On metoprolol and micardis at home. Also takes spironolactone and lasix for edema Continue to hold micardis, spironolactone and lasix while gently hydrating pa tient resumed low dose of metoprolol to avoid rebound tachycardia and pulse has dropped with that. (3) Lower extremity edema Conclusion/Plan: On lasix and spironolactone at home. Will hold micardis, spironolactone and lasix while gently hydrating patient this is a chronic condition of decade. 45 minutes spent at the bedside discussing the physiology and how she can improve (but not cure) her skin/leg condition. This includes sequential compression devices, compression stockings, maribel wraps, elevation, exquisite skin care, weight loss, exercise. (4) Hyperlipidemia Conclusion/Plan: On simvastatin (5) GERD (gastroesophageal reflux disease) Conclusion/Plan: Protonix ordered (6) [place], mild Her creatinine was 1.1 on admit>1.0>0.9 today. Continue to monitor. (7) DVT prophylaxis. Change lovenox to 30 mg bid per pharmacy recommendations which was then changed to 40 mg bid, again, their recommendation. Qualifiers: Qualified Code(s): L03.116 - Cellulitis of left lower limb
[2019-01-05] MEDS: cefTRIAXone 2 GM in SODIUM CHLORIDE 0.9% MINIBAG 100 ML IV SCH (14:40)
[2019-01-05 21:53] LABS: VANCOMYCIN,RANDOM 14.4 ug/mL
[2019-01-05] MEDS ORDERED: VANCOMYCIN INJ 1.5 GM in SODIUM CHLORIDE 0.9% 500 ML IV SCH (22:00)
[2019-01-06] MEDS: SODIUM CHLORIDE FLUSH 0.9% 10 ML SYRINGE IVP SCH ×2 (00:59→08:40)
[2019-01-06 05:30] LABS: BASOPHILS % (AUTO) 0.4 %; EOSINOPHILS # (AUTO) 0.3 10^3/uL (0.0-0.7); EOSINOPHILS % (AUTO) 3.9 %; HGB - HEMOGLOBIN 13.3 g/dL (12.0-16.0); LYMPHOCYTES # (AUTO) 1.5 10^3/uL (1.5-3.5); LYMPHOCYTES % (AUTO) 22.1 %; MEAN CORPUSCULAR HGB CONC 32.6 g/dL (32.0-36.0); MEAN CORPUSCULAR VOLUME 89.1 fL (81.0-99.0); MEAN PLATELET VOLUME 8.9 fL (7.9-10.8); MONOCYTES % (AUTO) 14.8 %; NEUTROPHILS # (AUTO) 3.9 10^3/uL (1.5-6.6); NEUTROPHILS % (AUTO) 58.5 %; PLT - PLATELET COUNT 162 10^3/uL (130-450); RED BLOOD COUNT 4.58 10^6/uL (4.20-5.40); WHITE BLOOD COUNT 6.7 x10^3/uL (4.8-10.8)
[2019-01-06 05:41] LABS: CALCIUM 9.3 mg/dL (8.5-10.3); CREATININE 0.7 mg/dL (0.4-1.0)
[2019-01-06] MEDS ORDERED: PANTOPRAZOLE 40 MG TABLET PO SCH (07:00)
--- NOTE | 2019-01-06 07:39 | Discharge Plan ---
Discharge Plan Problem Reviewed?: Yes Disposition: Home, Self Care Condition: Stable Prescriptions: Doxycycline Hyclate 100 mg PO BID #12 capsule Nystatin [Nystop] 1 applic TOP BID #2 bottle Diet: Low Sodium Activity Restrictions: Activity as Tolerated Shower Restrictions: No Driving Restrictions: No Instruction Topics: Cephalexin tablets or capsules Health Concerns: You presented to our emergency room with chills, fast heart rate and not feeling well for 2 days. When the symptoms became too much, you came in. We found you to have chronic vein engorgement of your legs called venous stasis dermatitis as well as skin breakdown from a skin infection of the left middle calf, near your knee. With that was a fever and elevated white cell count. Treatment was antibiotics to treat skin infection from Staph and Strep bacteria. You also had a CT of the chest with dye looking for blood clots in your lungs and there were none found as well as no clots in your legs though ultrasound of our left leg. Plan of Treatment: 1. Complete 10 days of therapy for the skin infection of the left leg. You have finished 4 days of intravenous antibiotics here and will go home with 6 more days of Keflex 4 times a day. 2. Take an over the counter probiotic to help your bowels while on antibiotics. 3. Consider an exercise program or physical therapy to help the swelling of your legs. You, your daughter, and I spoke at length about this for 30 minutes the day before you left. 4. Please see your primary care provider in the next week for followup on examining of your leg. 5. Keep on using a topical antifungal for the rash under your breasts, under the skin of your abdomen, etc. Care Goals: Reduce risk of recurrent skin infection through skin care. Weight loss. Increase physical activity. Assessment: Patient expresses understanding of care goals. No Smoking: If you smoke, Please STOP! Call for help. Follow-up with: Jackelyn Cordova PA [Primary Care Provider] -
[2019-01-06] MEDS: POLYETHYLENE GLYCOL 3350 17 GM PACKET PO SCH (08:21)
[2019-01-06] MEDS: ENOXAPARIN 40 MG/0.4 ML SYRINGE SUBQ SCH (08:21)
[2019-01-06] MEDS: SENNA 8.6 MG TABLET PO SCH (08:21)
[2019-01-06] MEDS: DOCUSATE SODIUM 250 MG CAPSULE PO SCH (08:22)
[2019-01-06] MEDS: METOPROLOL TARTRATE 25 MG TABLET PO SCH (08:38)
[2019-01-06] MEDS: cefTRIAXone 2 GM in SODIUM CHLORIDE 0.9% MINIBAG 100 ML IV SCH (08:39)
[2019-01-06 08:40] VITALS: BP 120/80
[2019-01-06] MEDS: NYSTATIN POWDER 15 GM TOP SCH (08:44)
--- NOTE | 2019-01-07 18:03 | DISCHARGE SUMMARY ---
Physician: Barby Barreto MD DATE OF ADMISSION: 01/03/2019 DATE OF DISCHARGE: 01/06/2019 DISCHARGE DIAGNOSES: 1. Cellulitis of left lower extremity. 2. Venous stasis dermatitis of both lower extremities. 3. Lower extremity edema. 4. Hypertension. 5. Hyperlipidemia. 6. Gastroesophageal reflux disease. 7. Super obesity. 8. Acute kidney injury. DISCHARGE MEDICATIONS: 1. Vitamin C 500 mg every evening. 2. Aspirin 81 mg b.i.d. 3. Calcium with D vitamin. 4. Zinc tablet daily. 5. Cetirizine 10 mg daily. 6. Cranberry fruit capsule daily. 7. Nexium 40 mg daily. 8. Lasix 60 mg daily. 9. Ibuprofen 800 mg p.o. b.i.d. 10. Magnesium 250 mg daily. 11. Metoprolol tartrate 25 mg p.o. b.i.d. 12. Multivitamin with iron. 13. Simvastatin 40 mg in the evening. 14. Spironolactone 100 mg in the evening. 15. Micardis 40 mg daily. 16. Doxycycline 100 mg p.o. b.i.d. 17. Nystatin application to affected area under breast, under pannus, and intertriginous folds twice a day. PRINCIPAL PROCEDURES: 1. Chest x-ray: No definite abnormality with hypoventilation. 2. Chest thorax CT with moderate motion artifact, no definite acute prominent findings seen. Motion artifact limits the study. Fatty liver and small gallstones. 3. Venous duplex study of the left lower leg shows no deep venous thrombosis. 4. Blood cultures negative after 2 days. HOSPITAL COURSE: The patient is a very pleasant 68-year-old female who is 5 feet 2 inches tall and weighs 174 kg. She has chronic venous stasis of her lower extremity and struggled with her weight for a few decades now. An episode of infection in her left leg resulted in a fasciotomy at one point. Between her weight, knee replacements, and venous stasis, she is left with chronically edematous left bilateral extremities with venous stasis dermatitis. The legs are always purple in color. Two days ago, she began having chills and tachycardia. She powered through them for a couple of days. She is usually tachycardic with exertion. However, she noticed through her Fitbit that her heart rate was even higher at 170. She had a temperature of 102. She came to the emergency room and was found to have a left lower extremity cellulitis. The patient was placed on Med/Surg. Treated with Rocephin, azithromycin, and vancomycin in the emergency room. On the floor, she was transitioned only to vancomycin to cover lower extremity cellulitis. Because of that, the next hospitalist on board added Rocephin to the vancomycin. The patient continued to have intermittent fevers on 01/03, 01/04, and finally defervesced by 01/05/2019. Blood cultures were negative. While she continues to have significant venous stasis of the lower extremities with purple discoloration of her legs, the redness and heat of the upper medial calf resolved. Over 45 minutes was spent with the patient on the day before discharge and on the day of discharge, discussing venous stasis, the pathophysiology, the anatomic disruption of the venous return, and how she could improve that including compression Nikolas wrap, contoured compression stockings that she could buy, exercise, and weight loss. She needs to pay assiduous attention to the skin integrity to avoid further recurrence of cellulitis. She was continued on her usual hypertensive medicines. She was not diuresed because at times her blood pressure was low. By the time of discharge, blood pressure was normal. Reflux continued to be treated with Protonix. She did have a mild acute kidney injury. On admission, her creatinine was 1.1 and by discharge she was 0.9. She is discharged home in stable condition with cellulitis resolved in her left lower extremity. Temperature is 37.4, pulse 94, blood pressure 124/80, and respirations 18. 92-93% on room air. She is a super obese white female who looks her stated age. Alert, oriented. A little depressed about the state that her body has gotten in. She and her daughter have a plan, but she realizes that she may be getting into fights with her kids as she tries to exercise and lose weight for down the road. She has diminished breath sounds at the bases because of the huge chest size. Distant cardiac tones. A hugely immense abdomen. Amanda is underneath the breast and abdominal pannus and she is being sent home with nystatin. The rubor and stasis of the lower extremities is noted. She is asked to follow through with completing doxycycline. She is to see her primary care provider, Jackelyn Cordova, in the next week. Consider being evaluated for sleep study for obstructive sleep apnea or obesity hypoventilation syndrome. Greater than 30 minutes was spent coordinating discharge. TD: 01/07/2019 16:26 MTDD
== END 2019-01-06 12:09 | disposition home or self-care (01) | DRG 603 ==
LOC: ED 13:48 → MS2 19:56
PROVIDERS: ADMIT Internal Medicine; ATTEND Specialist
DX: L03.116 Cellulitis of left lower limb (principal); E78.00 Pure hypercholesterolemia, unspecified; I73.9 Peripheral vascular disease, unspecified; Z68.45 Body mass index [BMI] 70 or greater, adult; N17.9 Acute kidney failure, unspecified; L97.228 Non-pressure chronic ulcer of left calf with other specified severity; I87.2 Venous insufficiency (chronic) (peripheral); E66.01 Morbid (severe) obesity due to excess calories; B37.2 Candidiasis of skin and nail; R60.0 Localized edema; E78.5 Hyperlipidemia, unspecified; K21.9 Gastro-esophageal reflux disease without esophagitis; I10 Essential (primary) hypertension; H54.7 Unspecified visual loss; H53.2 Diplopia; Z96.652 Presence of left artificial knee joint; Z86.14 Personal history of Methicillin resistant Staphylococcus aureus infection; Z96.659 Presence of unspecified artificial knee joint; Z87.891 Personal history of nicotine dependence
CPT/HCPCS: 36415; 71046; 71275; 80048; 80053; 80202; 81003; 83605; 83690; 83880; 85025; 85379; 87040; 87640; 93971; 96361; 96365; 97161; 97165; 97530; 97535; 99284; 99285; A9270; J1650; J3370; Q9967; 81001; 87086

== ENCOUNTER 2020-07-11 | Outpatient (CLI) | payer MEDICARE, OTHER | END 2020-07-11 13:43 | disposition short-term general hospital (02) | DX: R60.0 Localized edema (principal) | CPT/HCPCS: A0425; A0429; A0888 ==

== ENCOUNTER 2020-09-01 13:42 | Outpatient (CLI) | payer MEDICARE, OTHER | END 2020-09-01 13:43 | disposition critical access hospital (66) | LOC: EMS 13:42 | DX: R06.02 Shortness of breath (principal); R06.2 Wheezing | CPT/HCPCS: A0425; A0427 ==

== ENCOUNTER 2020-09-01 13:59 | Emergency (ER) | payer MEDICARE, OTHER ==
[2020-09-01 14:30] LABS: BASOPHILS % (AUTO) 0.3 %; EOSINOPHILS # (AUTO) 0.2 10^3/uL (0.0-0.7); EOSINOPHILS % (AUTO) 2.2 %; HCT - HEMATOCRIT 41.4 % (37.0-47.0); HGB - HEMOGLOBIN 13.5 g/dL (12.0-16.0); LYMPHOCYTES # (AUTO) 0.9 10^3/uL (1.5-3.5); LYMPHOCYTES % (AUTO) 11.8 %; MEAN CORPUSCULAR HEMOGLOBIN 28.8 pg (27.0-31.0); MEAN CORPUSCULAR HGB CONC 32.6 g/dL (32.0-36.0); MEAN CORPUSCULAR VOLUME 88.3 fL (81.0-99.0); MEAN PLATELET VOLUME 9.6 fL (7.9-10.8); MONOCYTES # (AUTO) 1.4 10^3/uL (0.0-1.0); MONOCYTES % (AUTO) 18.2 %; NEUTROPHILS # (AUTO) 5.2 10^3/uL (1.5-6.6); NEUTROPHILS % (AUTO) 67.2 %; PLT - PLATELET COUNT 191 10^3/uL (130-450); RED BLOOD COUNT 4.69 10^6/uL (4.20-5.40); RED CELL DISTRIBUTION WIDTH 15.9 % (12.0-15.0); WHITE BLOOD COUNT 7.7 x10^3/uL (4.8-10.8)
[2020-09-01 14:41] LABS: ALBUMIN 3.3 g/dL (3.2-5.5); ALBUMIN/GLOBULIN RATIO 0.6 (1.0-2.2); BILIRUBIN,TOTAL 0.7 mg/dL (0.2-1.0); CALCIUM 9.4 mg/dL (8.5-10.3); CREATININE 1.1 mg/dL (0.4-1.0); POTASSIUM 3.9 mmol/L (3.5-5.0); TOTAL PROTEIN 8.4 g/dL (6.7-8.2)
[2020-09-01] MEDS ORDERED: ALBUTEROL 1 PUFF INH STA (14:42)
--- NOTE | 2020-09-01 14:44 | ED Physician Documentation ---
History of Present Illness - Stated complaint Stated Complaint: SOA - Chief complaint Chief Complaint: Resp - History obtained from History obtained from: Patient, EMS - History of Present Illness Timing: Today Pain level max: 0 Pain level now: 0 - Additonal information Additional information: 70-year-old female presents to the emergency department complaining of difficulty breathing and a dry cough for the past 2 days, no fevers. No chills. Nothing makes it better or worse. She was brought in by EMS today. No chest pain. No abdominal pain. No nausea or vomiting. Has had nasal congestion as well. Patient denies any history of any respiratory issues such as asthma, COPD, emphysema etc. Review of Systems Ten Systems: 10 systems reviewed and negative Constitutional: denies: Fever, Chills Respiratory: denies: Cough, Wheezing GI: denies: Vomiting, Diarrhea Skin: denies: Rash Musculoskeletal: denies: Neck pain, Back pain Neurologic: denies: Headache PD PAST MEDICAL HISTORY - Past Medical History Past Medical History: Yes Cardiovascular: High cholesterol, Peripheral Vascular Disease Respiratory: None Neuro: None Endocrine/Autoimmune: None GI: GERD BUNDLES HANGER: None : None HEENT: Chronic vision loss Psych: None Musculoskeletal: None Derm: None - Past Surgical History Past Surgical History: Yes Ortho: Knee replacement Derm: Other - Present Medications Home Medications: Ambulatory Orders Medication Instructions Recorded Confirmed Ascorbic Acid [Vitamin C] 500 mg PO QPM 01/04/19 09/01/20 Aspirin [Adult Aspirin Regimen] 81 mg PO DAILY 01/04/19 09/01/20 Ca/D3/Mag/Zinc/Twin/Mau/Mgbor 1 each PO DAILY 01/04/19 09/01/20 [Caltrate 600-D3-Min Chew Tab] Cetirizine [ZyrTEC] 10 mg PO DAILY 01/04/19 09/01/20 Cranberry Fruit Extract [Cranberry] 1 cap PO DAILY 01/04/19 09/01/20 Esomeprazole Magnesium [Nexium] 40 mg PO QDAC 01/04/19 09/01/20 Furosemide 20 mg PO BID 01/04/19 09/01/20 Ibuprofen [Ibu] 800 mg PO BID 01/04/19 09/01/20 Magnesium 250 mg PO DAILY 01/04/19 09/01/20 Metoprolol Tartrate 25 mg PO BID 01/04/19 09/01/20 Multivit with Calcium,Iron,Min 1 each PO DAILY 01/04/19 09/01/20 [Multiple Vitamins For Women] Simvastatin 40 mg PO QPM 01/04/19 09/01/20 Spironolactone 100 mg PO QPM 01/04/19 09/01/20 Nystatin [Nystop] 1 applic TOP BID #2 bottle 01/06/19 09/01/20 Albuterol Sulf [Ventolin Hfa 1 - 2 puffs INH Q4HR PRN #1 inhaler 09/01/20 Inhaler] predniSONE [Deltasone] 40 mg PO DAILY #10 tablet 09/01/20 - Allergies Allergies/Adverse Reactions: Allergies Allergy/AdvReac Type Severity Reaction Status Date / Time adhesive tape Allergy Rash Verified 09/01/20 14:23 Sulfa (Sulfonamide Allergy Cramps Verified 09/01/20 14:23 Antibiotics) - Social History Does the pt smoke?: No Smoking Status: Former smoker Does the pt drink ETOH?: Yes Does the pt have substance abuse?: No - Immunizations Immunizations are current?: Yes Immunizations: TDAP current <10years, Other immun current - POLST Patient has POLST: No POLST Status: Full Code PD ED PE NORMAL - Vitals Vital signs reviewed: Yes - General General: Alert and oriented X 3, No acute distress, Well developed/nourished - HEENT HEENT: PERRL, Moist mucous membranes - Neck Neck: Supple, no meningeal sign - Cardiac Cardiac: RRR, Strong equal pulses - Respiratory Respiratory: No respiratory distress, Other (Diminished breath sounds bilaterally. Wheezing bilaterally) - Abdomen Abdomen: Soft, Non tender, Non distended - Derm Derm: Warm and dry - Extremities Extremities: Other (B LE lymphedema and venous stasis. small 2mm wound to L heel with no signs of infection.) - Neuro Neuro: Alert and oriented X 3 - Psych Psych: Normal mood, Normal affect Results - Vitals Vitals: Oxygen O2 Source Room air - Labs Labs: Laboratory Tests 09/01/20 09/01/20 09/01/20 14:23 14:23 14:23 WBC 7.7 RBC 4.69 Hgb 13.5 Hct 41.4 MCV 88.3 MCH 28.8 MCHC 32.6 RDW 15.9 H Plt Count 191 MPV 9.6 Neut # (Auto) 5.2 Lymph # (Auto) 0.9 L Garrett # (Auto) 1.4 H Eos # (Auto) 0.2 Baso # (Auto) 0.0 Absolute Nucleated RBC 0.00 Nucleated RBC % 0.0 Sodium 133 L Potassium 3.9 Chloride 96 L Carbon Dioxide 27 Anion Gap 10.0 BUN 42 H Creatinine 1.1 H Estimated GFR (MDRD) 49 L Glucose 118 H Calcium 9.4 Total Bilirubin 0.7 AST 82 H ALT 73 H Alkaline Phosphatase 104 Troponin I High Sens 7.5 Total Protein 8.4 H Albumin 3.3 Globulin 5.1 H Albumin/Globulin Ratio 0.6 L Lipase 29 Nasal Adenovirus (PCR) Nasal B. parapertussis DNA (PCR) Nasal Coronavir 229E PCR Nasal Coronavir HKU1 PCR Nasal Coronavir NL63 PCR Nasal Coronavir OC43 PCR Nasal Enterovir/Rhinovir PCR Nasal Influenza B PCR Nasal Influenza A PCR Nasal Parainfluen 1 PCR Nasal Parainfluen 2 PCR Nasal Parainfluen 3 PCR Nasal Parainfluen 4 PCR Nasal RSV (PCR) Nasal B.pertussis DNA PCR Nasal C.pneumoniae (PCR) Neil Human Metapneumo PCR Nasal M.pneumoniae (PCR) Nasal SARS-CoV-2 (PCR) 09/01/20 14:30 WBC RBC Hgb Hct MCV MCH MCHC RDW Plt Count MPV Neut # (Auto) Lymph # (Auto) Garrett # (Auto) Eos # (Auto) Baso # (Auto) Absolute Nucleated RBC Nucleated RBC % Sodium Potassium Chloride Carbon Dioxide Anion Gap BUN Creatinine Estimated GFR (MDRD) Glucose Calcium Total Bilirubin AST ALT Alkaline Phosphatase Troponin I High Sens Total Protein Albumin Globulin Albumin/Globulin Ratio Lipase Nasal Adenovirus (PCR) NOT DETECTED Nasal B. parapertussis DNA (PCR) NOT DETECTED Nasal Coronavir 229E PCR NOT DETECTED Nasal Coronavir HKU1 PCR NOT DETECTED Nasal Coronavir NL63 PCR NOT DETECTED Nasal Coronavir OC43 PCR NOT DETECTED Nasal Enterovir/Rhinovir PCR NOT DETECTED Nasal Influenza B PCR NOT DETECTED Nasal Influenza A PCR NOT DETECTED Nasal Parainfluen 1 PCR NOT DETECTED Nasal Parainfluen 2 PCR NOT DETECTED Nasal Parainfluen 3 PCR NOT DETECTED Nasal Parainfluen 4 PCR NOT DETECTED Nasal RSV (PCR) NOT DETECTED Nasal B.pertussis DNA PCR NOT DETECTED Nasal C.pneumoniae (PCR) NOT DETECTED Neil Human Metapneumo PCR NOT DETECTED Nasal M.pneumoniae (PCR) NOT DETECTED Nasal SARS-CoV-2 (PCR) NOT DETECTED - Rads (name of study) cxr Radiology: Prelim report reviewed, EMP read contemporaneously, See rad report (No acute cardiopulmonary disease process. ) PD MEDICAL DECISION MAKING - ED course Complexity details: reviewed results, re-evaluated patient, considered differential, d/w patient ED course: 70-year-old female with cough and audible wheezing. Feels much better after steroids and breathing treatments. Wheezing resolved. No hypoxia. No respiratory distress. We will place her on inhalers for home along with steroids. No indication for antibiotics at this time. Patient is well- appearing, nontoxic. Patient counseled regarding signs and symptoms for which I believe and urgent re-evaluation would be necessary. Patient with good understanding of and agreement to plan and is comfortable going home at this time This document was made in part using voice recognition software. While efforts are made to proofread this document, sound alike and grammatical errors may occur. Departure - Departure Disposition: Home, Self Care Clinical Impression: Wheezing Dyspnea Qualifiers: Dyspnea type: dyspnea on exertion Qualified Code(s): R06.00 - Dyspnea, unspecified Open wound of heel Qualifiers: Encounter type: initial encounter Laterality: left Qualified Code(s): S91.302A - Unspecified open wound, left foot, initial encounter Condition: Good Instructions: ED Dyspnea Shortness of Breath, ED Viral Syndrome Follow-Up: Jackelyn Cordova PA [Primary Care Provider] - Within 1 week Prescriptions: Albuterol Sulf [Ventolin Hfa Inhaler] 1 - 2 puffs INH Q4HR PRN #1 inhaler PRN Reason: Shortness Of Air/Wheezing predniSONE [Deltasone] 40 mg PO DAILY #10 tablet Comments: Use the medications as prescribed at home. Follow-up with your doctor for further care. Return if you worsen. Also keep the wound on your left heel clean, have this reevaluated with your doctor in 1 week. Discharge Date/Time: 09/01/20 19:52
--- NOTE | 2020-09-01 14:50 | XRAY Report ---
PROCEDURE: Chest 1 View X-Ray INDICATIONS: Chest pain TECHNIQUE: One view of the chest was acquired. COMPARISON: 01/03/2019 FINDINGS: Surgical changes and devices: None. Lungs and pleura: No pleural effusions or pneumothorax. Lungs are clear. Mediastinum: Mediastinal contours appear normal. Heart size is normal. Bones and chest wall: No suspicious bony lesions. Severe bilateral shoulder arthritis. Overlying so ft tissues appear unremarkable. IMPRESSION: No acute cardiopulmonary disease process. Reviewed by: Bozena Huston MD, PhD on 09/01/2020 2:48 PM PDT Approved by: Bozena Huston MD, PhD on 09/01/2020 2:48 PM PDT Station ID: [id number]
--- OUTSIDE RECORDS SUMMARY | 2020-09-01 15:24 | EXTERNAL MEDICAL SUMMARY RPT | Continuity of Care Document ---
:1950 Demographics Phone Unavailable Preferred Language Belarusian Marital Status Unknown Mu-Ism Affiliation Unknown Race Unknown Ethnic Group Unknown Author Organization [facility] Address [address] [phone] Phone Care Team Providers Name Role Phone Sreekanth Unavailable Unavailable Allergies Encounters Medications date description facility 20200713 Cephalexin 750 MG Oral Capsule [facility] [id number] Furosemide 40 MG Oral Tablet [facility] [id number] Triamcinolone Acetonide 5 MG/ML [facility] [id number] Fluconazole 150 MG Oral Tablet [facility] [id number] Triamcinolone Acetonide 5 MG/ML [facility] [id number] Ibuprofen 800 MG Oral Tablet [facility] [id number] Spironolactone 100 MG Oral Tablet [facility] Problems date description facility 20200716 Essential (primary) hypertension [facility] 20200711 Cellulitis of left lower limb [facility] Procedures date description facility 20200711 General Physician [facility] [id number] [facility] [id number] Diagnosis [facility] Results Vital Signs date measurement value source 20200711 weight_standard 163.29 lb 20200711 weight_metric 74.07 kg 20200711 temperature_standard 98.3 F 20200711 temperature_metric 36.83 C 20200711 respiration_rate 15 /min 20200711 height_standard 63 in 20200711 height_metric 160.02 cm 20200711 heart_rate 73 /min 20200711 BP_systolic 130 mm[Hg] 20200711 BP_diastolic 63 mm[Hg] 20200711 BMI 63.8 kg/m2 20200713 temperature_standard 97.2 F 20200713 temperature_metric 36.22 C [id number] respiration_rate 20 /min 20200713 heart_rate 81 /min 20200713 BP_systolic 115 mm[Hg] [id number] BP_diastolic 62 mm[Hg]
[2020-09-01 15:46] LABS: B. PARAPERTUSSIS- RESP PCR PAN NOT DETECTED; B. PERTUSSIS- RESP PCR PANEL NOT DETECTED; C. PNEUMONIAE- RESP PCR PANEL NOT DETECTED; CORONAVIRUS 229E-RESP PCR NOT DETECTED; CORONAVIRUS HKU1-RESP PCR NOT DETECTED; CORONAVIRUS NL63-RESP PCR NOT DETECTED; CORONAVIRUS OC43-RESP PCR NOT DETECTED; HUMAN METAPNEUMOVIRUS NOT DETECTED; INFLUENZA A- RESP PCR PANEL NOT DETECTED; INFLUENZA B - RESP PCR PANEL NOT DETECTED; M. PNEUMONIAE- RESP PCR PANEL NOT DETECTED; PARAINFLUENZA VIRUS 1 NOT DETECTED; PARAINFLUENZA VIRUS 2 NOT DETECTED; PARAINFLUENZA VIRUS 3 NOT DETECTED; PARAINFLUENZA VIRUS 4 NOT DETECTED; RHINOVIRUS/ENTEROVIRUS NOT DETECTED; RSV- RESP PCR PANEL NOT DETECTED; SARS-CoV-2 -RESP PCR PANEL NOT DETECTED
[2020-09-01] MEDS ORDERED: IPRATROPIUM/ALBUTEROL 3 ML NEB INH STA (15:53)
[2020-09-01 18:47] VITALS: BP 142/82
== END 2020-09-01 19:52 | disposition home or self-care (01) ==
LOC: EDUNIT# → ED 13:59
DX: R06.2 Wheezing (principal); R05 Cough; R09.81 Nasal congestion; Z20.822 Contact with and (suspected) exposure to COVID-19; S91.302A Unspecified open wound, left foot, initial encounter; X58.XXXA Exposure to other specified factors, initial encounter; I73.9 Peripheral vascular disease, unspecified; I87.8 Other specified disorders of veins; I89.0 Lymphedema, not elsewhere classified; Z79.82 Long term (current) use of aspirin; Z87.891 Personal history of nicotine dependence
CPT/HCPCS: 0202U; 36415; 80053; 83690; 84484; 85025; 94640; 99284

== ENCOUNTER 2020-09-19 13:09 | Outpatient (CLI) | payer MEDICARE, OTHER ==
--- NOTE | 2020-09-19 13:56 | SLEEP CARE CONSULTATION ---
Information from patient questionnaire entered by Mariposa Ellison. I have reviewed and concur with the information entered by Mariposa Ellison. This document represents the service I personally performed and the decisions made by me, Abi Garcia ARNP. History of Present Illness Service Date and Time: 09/19/2020 1309 Reason for Visit: New patient, Previously diagnosed sleep apnea (severe - AHI - 33.9), Re-establish care (last seen 2013) Chief Complaint: reports: Frequent awakenings at night (every 3 hours, mainly due to bladder needing to empty), Other (low oxygen intake when resting) Date of Onset: 3 years Usual bedtime: 12 - 1 am Time it takes to fall asleep: minutes Snores at night: No Observed to quit breathing while asleep: No Number of times waking at night: every 3 hours due to diaretics Reasons for waking at night: reports: Choking (due to GERD), Gasping for air, B athroom Toss, Turn, or Twitch while sleeping: No Recalls having dreams: No Usually gets out of bed at: 8:30 am Feels refreshed in the morning: No Morning headache: No Sleepy or fatigued during the day: Yes Ever fallen asleep while driving: No Takes day naps: Yes (sometimes; 2 times a week for about 15-30 minutes) Dreams during day naps: No Prior sleep studies: Yes Year and Where: 2013 [facility] Type of Sleep Study: Polysomnography Additional HPI information: MARIA ESTHER SANTOS was diagnosed to have severe, AHI 33.9, obstructive sleep apnea- hypopnea syndrome and comes in today with caregiver to re-establish care. She states she tried using a CPAP for a month but was unable to breathe out with the pressure and stopped. When she was in the hospital they noted that her oxygen saturation were decreasing all day, especially with activity. She states she is a shallow breather and always has been. She was sent her by her PCP for evaluation and to explore treatment options. - Parasomnia Symptoms Ever been unable to move upon waking from sleep: No Walks in sleep: No Talks in sleep: No Ever acted out dreams in sleep: No Ever felt weak in the knees when startled or emotional: No Bothered by creepy, crawly, restless sensations in legs: Yes (sometimes; no particular time a day; legs ache from lymphedema) Problems with memory or concentration: No Subjective Initial [place] Sleepiness Scale score: 4 (in 2014) Current [place] Sleepiness Scale score: 4 Past Medical History Past Medical History: reports: Arthritis, Anxiety, GERD (lymph yair), Other (lymphedema) Social History The patient's occupation is a Retired. Patient is Single and lives in [place]. Have you smoked in the past 12 months: No Cigarettes per day (20/pack): 10 Years of smokin Quit date: 1980 Smoking Pack Years: 2.5 Alcohol use: Yes Alcohol amount and frequency: 1 glass very infrequent Caffeine use: Yes Caffeine amount and frequency: about 6 oz 1-2 times a month Family History Family history of sleep disordered breathing: Yes Family Hx Sleep Apnea: Sibling: Sleep apnea - Treated (3), Grandparent: Snoring Allergies and Home Medications Drug allergies reviewed: Yes (Sulfa) Home medication list reviewed: Yes Allergy and home medication list: Ibuprofen Aspirin Furosemide Pantprazole Spironolactone Simvastatin Metoprolol tartrate Caltrate Zyrtec magnesium cranberry multivitamin Omega3 fish oil vitamin C Probiotic Review of Systems Weight gain over past 5 years: 50 Cardiovascular: denies: high blood pressure Respiratory: reports: shortness of breath, wheeze Urinary: reports: incontinence Neurological: reports: gait or balance problems. denies: headaches Psychiatric: reports: anxiety Ear/Nose/Throat: reports: sinus problems, nose bleeds, dry mouth/throat Endocrine: reports: unexplained weakness Musculoskeletal: reports: joint pain, mobility problems Immunologic: reports: sneezing, itching Physical Exam Blood Pressure: 101/65 Cuff size: wrist Heart Rate: 98 O2 Saturation: 92 Height: 5 ft 2 in Weight: 350 lb Body Mass Index: 64.0 BMI Classification: Morbidly Obese Heart: regular rate and rhythm Lungs: clear bilaterally Impression and Plan 1. Suspected Obstructive Sleep Apnea-Hypopnea Syndrome, as previously diagnosed and as suggested by a history of gasping or choking in sleep, frequent awakening during the night and low oxygen saturation during day and night. Patient needs re-evaluation and patient would prefer to have an HST due to her last experience being a bad one. I recommend proceeding to polysomnography to confirm the diagnosis and to assess severity. If the patient has significant sleep disordered breathing, a manual CPAP titration study will also be performed to find the optimal treatment pressure. I informed the patient of what the sleep studies involve and after some discussion, obtained agreement to proceed. The pathophysiology of obstructive sleep apnea-hypopnea syndrome was discussed with the patient and health risks of cardiovascular and cerebrovascular disease if n ot treated. Patient agreed to plan. * Schedule polysomnography +- manual CPAP titration study and return in 1-2 weeks after the study to discuss result and initiate therapy. * Avoid long distance driving or driving when feeling sleepy. * Avoid alcohol, sedative and muscle relaxant around bedtime. * Attempt to lose weight. * Review instructions provided by trained office staff on how to prepare for the sleep study. * Return for follow-up after sleep study completed. Counseling Topics: Weight loss health impact Visit Type: In Office Other Participants: Caregiver Time Spent with Patient (minutes): 32 Provider Statement: I spent 100% of the Face to Face Visit with the patient with greater than 50% spent counseling the patient and coordination of care.
[2020-09-19 13:57] VITALS: BP 101/65
== END 2020-09-19 13:10 | disposition home or self-care (01) ==
LOC: SC 13:09
PROVIDERS: ATTEND Nurse Practitioner Family
DX: G47.33 Obstructive sleep apnea (adult) (pediatric) (principal); E66.01 Morbid (severe) obesity due to excess calories; Z68.44 Body mass index [BMI] 60.0-69.9, adult
CPT/HCPCS: 99203; 99212

== ENCOUNTER 2020-09-19 14:17 | Outpatient (CLI) | payer MEDICARE, OTHER | END 2020-09-19 14:18 | disposition home or self-care (01) | LOC: SC 14:17 | PROVIDERS: ATTEND Nurse Practitioner Family | DX: G47.33 Obstructive sleep apnea (adult) (pediatric) (principal); E66.01 Morbid (severe) obesity due to excess calories; Z68.44 Body mass index [BMI] 60.0-69.9, adult | CPT/HCPCS: 99203; G0399; G0463; 95806; 99212 ==

== ENCOUNTER 2020-09-22 15:55 | Outpatient (CLI) | payer MEDICARE, OTHER | END 2020-09-22 15:56 | disposition home or self-care (01) | LOC: EMS 15:55 | DX: R68.83 Chills (without fever) (principal) | CPT/HCPCS: A0425; A0427 ==

== ENCOUNTER 2020-10-04 10:42 | Outpatient (CLI) | payer MEDICARE, OTHER ==
--- NOTE | 2020-10-04 11:03 | SLEEP CARE CONSULTATION ---
Information from patient questionnaire entered by Mariposa Ellison. I have reviewed and concur with the information entered by Mariposa Ellison. This document represents the service I personally performed and the decisions made by , Abi Garcia ARNP. History of Present Illness Service Date and Time: 10/04/2020 1042 Initial [place] Sleepiness Scale score: 4 (in 2013 and 2020) Current [place] Sleepiness Scale score: 4 Additional HPI information: MARIA ESTHER SANTOS returns via Telehealth visit with daughter for follow up and results of the recently performed home sleep study. I explained the pathophysiology behind obstructive sleep apnea. We then spent quite a bit of time discussing different treatment options. For mild obstructive sleep apnea, surgery and oral appliance are alternatives to nasal CPAP therapy but in moderate or severe cases, nasal CPAP is the most effective and reliable treatment. Because apnea is primarily in supine position, then positional management therapy could be effective. Methods discussed such as positioning with pillows, using a T-shirt with tennis balls in the back, and shown commercial products that have a pillow format on back to prevent supine sleep. I reviewed the impact of weight changes on sleep apnea and strongly recommended losing weight. After some discussion, the patient opted to go with the nasal CPAP therapy. Nasal autoCPAP set at 4-15 cmH20 will be ordered with rationale explained. A manual titration study will be ordered if unable to find optimal pressure with office adjustments. I explained how CPAP machine works and what to expect when using the machine. Using CPAP every night in order to get used to it was emphasized. If snoring or perceives is not getting enough air or too much air from the machine, notify this office. Patient was cautioned about risks of drowsy driving until sleepiness symptoms resolve. Sleep Study - Results Type of Sleep Study: Home sleep study Prior sleep studies: Yes Year and Where: 2013(PSG) - [facility] Sleep Polysomnography/Home Sleep Study results: Physician Impression: The quality of the study is good. The length of the study is adequate (> 240 minutes). Please also see the tabulated and graphic data. 1. Obstructive Sleep Apnea-Hypopnea (ICD-10 G47.33), moderate, with an AHI of 23.8/hr and ajay SaO2 of 65%. During the study, the patient had 13 apneas (13 obstructive, 0 central, 0 mixed) and 89 hypopneas. The longest episode lasted 77.5 seconds. The respiratory events occurred more frequently during supine sleep (supine AHI was 23.8 and non-supine, 0.00). 2. Hypoxemia (ICD-10 R09.02), moderate, with the lowest oxygen saturation of 65 % and 218.1 minutes with SaO2 under 90%. Baseline oxygen saturation was low (Average oxygen saturation was 89%). Allergies and Home Medications Home medication list reviewed: Yes (meds for sepsis in hospital) Review of Systems Review of systems same as previous: No (Hospitalized for sepsis) Physical Exam Vital signs obtained and entered by: Telehealth visit to reduce exposure during Covid pandemic Height: 5 ft 2 in Impression and Plan 1. Obstructive Sleep Apnea-Hypopnea Syndrome, moderate, with lowest oxygen saturation of 65%. Obviously this is the cause of the patients symptoms of unrefreshed sleep, and excessive daytime sleepiness. Positive pressure therapy could benefit anxiety and gastric reflux. As mentioned above, the patient will be started on nasal autoCPAP therapy with pressure set at 4-15 cmH2O. Patient is currently hospitalized with sepsis and will be going to care facility upon discharge in a few days. She has been using a trilogy machine to assist breathing in the hospital and has been doing very well with it. She would like to be set up on CPAP since the care facilities will not accept the trilogy machine. I will write for an urgent set up to try and facilitate getting her m achine soonest. A manual titration study will be completed if unable to find optimal treatment pressure with office adjustments. Compliance guidelines also reviewed. A copy of compliance guidelines will be given for reference at check out. Because the apnea is more severe supine, I instructed to avoid sleeping supine using pillow positioning until able to start CPAP use. 2. Hypoxemia, moderate, with the lowest oxygen saturation of 65 % and 218.1 minutes with SaO2 under 90%. His baseline oxygen saturation was low with an average oxygen saturation of 89%. Due to her low baseline oxygen saturation she may consider follow up with her PCP to evaluate for underlying cardiopulmonary disorders such as COPD, congestive heart failure, obesity hypoventilation, etc. Further work up with PFTs, ABGs, may be beneficial. * Nasal auto CPAP therapy, pressure at 4-15 cm H2O, urgent setup. * Follow up with PCP for moderate hypoxemia * Attempt to lose weight. * Avoid supine sleep until using CPAP. * The patient is again cautioned about driving until sleepiness completely resolves. * Return one month after CPAP obtained. I will assess response to therapy and compliance at that time. Counseling Topics: Weight loss health impact Visit Type: Telehealth Video Video Type: MARIA GUADALUPEee Patient Location: [facility] Other Participants: Child (daughter) Location of Provider: Office Patient agrees and consents to this telehealth visit type: Yes Time Spent with Patient (minutes): 23 Provider Statement: I spent 100% of the Telehealth Video Call with the patient with greater than 50% spent counseling the patient and coordination of care.
== END 2020-10-04 10:43 | disposition home or self-care (01) ==
LOC: SC 10:42
PROVIDERS: ATTEND Nurse Practitioner Family
DX: G47.33 Obstructive sleep apnea (adult) (pediatric) (principal)